=== PATIENT | female | born 1970 | race Caucasian/White ===

== ENCOUNTER → 2019-10-18 | Outpatient (CLI) | payer BC, OTHER ==
--- NOTE | 2019-10-19 09:41 | US ---
EXAM DESCRIPTION: 3D Diagnostic, Bilateral (accession [id number]), Breast,Right (accession [id number]): Ultrasound CLINICAL HISTORY: 49 yearsFemaleABNORMAL CLINICAL BREAST EXAM palpable subareolar mass right breast. No personal history of breast cancer. Remote family history of breast cancer. Menarche age 13. Childbirth age 18. Menopause age 47. No HRT Lifetime risk of developing breast cancer (Tyrer-Cuzick model)(%): 6.0. COMPARISON: 2-D digital screening bilateral mammography September 2011. TECHNIQUE: Bilateral LM, CC, and MLO projection full-field images, digital tomosynthesis technique. Bilateral 2-D digital full-field images: LM, CC, and MLO projections. Spot magnification retroareolar right breast. CAD available for 2-D images.. Transcutaneous scanning of the right breast utilizing lebron-scale and Doppler modes. Scanning performed by the colliery clerk ; observation by Dr. Cross. FINDINGS: The breast parenchymal density pattern is: Scattered areas of fibroglandular density. No skin thickening or nipple retraction fibroglandular tissues bilaterally are predominantly in the anterior third of both breasts. Small group of predominantly round microcalcifications abutting the lateral-inferior right nipple and in close association with the overlying skin marker. Not well visualized on the tomosynthesis images. Not seen on the prior studies from 2012. Focal asymmetry 2:00 to 3:00 anterior third approximately 5 to 6 cm from the nipple. Focal asymmetry middle third of the right breast approximately 8 to 9 cm from the nipple lower-outer quadrant, approximately 6:00. Solitary microcalcifications bilaterally and left axillary and intramammary lymph nodes. Ultrasound: Scanning of the retroareolar right breast shows no dominant solid mass, distinct cyst, large calcifications, and no other abnormal tissue. Scanning right breast 6:00, 8 cm from the nipple demonstrates a well-defined anechoic cyst with wider than tall orientation, echogenic watson, and posterior acoustic enhancement. Dimensions are 12 x 8 x 4 mm with no vascularity. Scanning right breast 2:00 to 4:00 5 cm from the nipple. Mixture of fatty and fibroglandular tissues. No dominant solid mass, no distinct cyst, no fluid collection and no large calcifications. No skin changes visible on the right breast. IMPRESSION: Probably benign retroareolar calcifications right breast. BI-RADS CATEGORY: 3 - PROBABLY BENIGN. RECOMMENDATIONS: FOLLOW-UP: Short interval (6-month) diagnostic digital tomosynthesis right breast with targeted right breast ultrasound.. The FINDINGS and the FOLLOW-UP plan were reviewed in person with the patient after the examination. Written communication explaining the IMPRESSION and FOLLOW-UP will be mailed to the patient and referring care provider. Electronically signed by: Peterson Cross MD 10/19/2019 9:40 AM CDT
== END ==
LOC: MAMMO 10:30
PROVIDERS: ATTEND Family Medicine
DX: R92.8 Other abnormal and inconclusive findings on diagnostic imaging of breast (principal)
CPT/HCPCS: 76641; 77066; G0279

== ENCOUNTER 2020-02-18 23:35 | Emergency (ER) | payer OTHER ==
[2020-02-18] MEDS ORDERED: ACETAMINOPHEN 500 MG TAB PO ONE (23:49)
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
[2020-02-18 23:56] VITALS: TEMP 97.1
[2020-02-19] MEDS ORDERED: SODIUM CHLORIDE 0.9% 1000ML 1,000 ML IVS ONE (00:02)
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
[2020-02-19 01:23] VITALS: O2SAT 97
--- NOTE | 2020-02-19 02:05 | CT ---
EXAM DESCRIPTION: CT of the head without contrast CLINICAL HISTORY: Trauma/pain COMPARISON: None available TECHNIQUE: Axial CT of the head obtained from the skull apex to the skull base without contrast. FINDINGS: No acute intracranial hemorrhage identified. No mass, mass effect, shift of the midline, abnormal extra-axial fluid collection or CT evidence of acute ischemic change identified. The ventricular system is unremarkable. No acute abnormalities of the supratentorial white matter, basal ganglia, cerebellum, or brainstem. The visualized paranasal sinuses and the mastoids are relatively well aerated. No skull fracture identified. Visualized orbits and globes are unremarkable. IMPRESSION: 1. No acute intracranial abnormality identified. This exam was performed according to our departmental dose-optimization program, which includes automated exposure control, adjustment of the mA and/or kV according to patient size and/or use of iterative reconstruction technique. Electronically signed by: Lino Diane 02/19/2020 2:03 AM CDT
--- NOTE | 2020-02-19 02:07 | CT ---
EXAM DESCRIPTION: CT of the cervical spine without contrast. CLINICAL HISTORY: trauma /pain COMPARISON: None available TECHNIQUE: Axial CT of the cervical spine obtained without contrast. FINDINGS: Straightening of the cervical lordosis may be secondary to patient positioning. The atlantoaxial, atlantodental, and occipitoatlantal intervals are preserved. No fracture identified. Vertebral body height preserved. Prevertebral soft tissues are unremarkable. Intervertebral disc height preserved. Degenerative spurring of the atlantodental articulation. Visualized skull base is intact. No fracture of the visualized facial bones. Visualized mastoid air cells and paranasal sinuses are well aerated. Visualized thyroid is unremarkable. No cervical lymphadenopathy. No pneumothorax in the visualized lung apices. IMPRESSION: 1. No acute fracture or subluxation of the cervical spine. This exam was performed according to our departmental dose-optimization program, which includes automated exposure control, adjustment of the mA and/or kV according to patient size and/or use of iterative reconstruction technique. Electronically signed by: Lino Diane 02/19/2020 2:06 AM CDT
--- NOTE | 2020-02-19 02:19 | CT ---
CT THORACIC SPINE WITHOUT CONTRAST. 02/19/2020 CLINICAL HISTORY: Pain after trauma. COMPARISON: None. TECHNIQUE: Axial 2.[address] imaging of the thoracic spine. Reformatted coronal and sagittal images obtained. A dose reduction technique was utilized. FINDINGS: Limited exam due to body habitus and mild motion artifact. Normal thoracic kyphosis. There is no thoracic vertebral body fracture. No subluxation. No fracture within the posterior elements. There is evidence of T10 bilateral laminectomy. There is minimal degenerative disc narrowing throughout the mid to lower thoracic spine with multilevel vacuum disc changes. There are hypertrophic mild endplate osteophytes throughout the thoracic spine. There is no spinal canal or foraminal stenosis. There is an intrathecal catheter entering the thecal space at the T9-10 level with the superior tip of the device at T8. There is mild increased attenuation of the lung parenchyma bilaterally due to very low volumes. Elevated right hemidiaphragm suggesting paralysis. Included. Central airways appear normal. IMPRESSION: 1. Mild thoracic spondylosis. No acute fracture or subluxation. Electronically signed by: Bella Talamantes DO 02/19/2020 2:18 AM CDT
--- NOTE | 2020-02-19 02:20 | CT ---
EXAM: AP lumbar spine without IV contrast CLINICAL DATA: 50-year-old female status post trauma. TECHNICAL DATA: Multiple high-resolution thin axial CT images were performed through the lumbar spine followed by sagittal and coronal reconstructed images. The CT study is performed according to ALARA (as low as reasonably achievable) or ALARA/IMAGE GENTLY, with automatic adjustment of mA and/or kV according to patient size. Performed on: 02/19/2020 at 1:37 AM COMPARISONS: Prior CT abdomen and pelvis performed on 03/14/2016 and plain radiographs of the lumbar spine performed on 04/01/2011. FINDINGS: There are five lumbar type vertebral bodies. The lumbar vertebrae are normal in height. There is normal alignment of the vertebrae. There is persistent marked disc space narrowing at L5-S1. Bone mineralization is normal. There is normal alignment of the facet joints on the parasagittal images. There are moderate degenerative changes of the facet joints and there appears to be fusion of the L4-L5 and L5-S1 facet joints. There are stable radiopaque foreign bodies posterior to the L3-L4 facet joints bilaterally. There is no evidence of acute fracture or subluxation. There is L3-L4 canal stenosis secondary to a disc osteophyte complex and facet joint arthropathy. There is no significant neural foraminal stenosis. The paravertebral and paraspinal soft tissues are unremarkable. IMPRESSION: 1. No evidence of acute osseous injury involving the lumbar spine. 2. Mild degenerative changes of the lumbar spine similar when compared to the prior study. 3. Chronic changes of the facet joints from L3-L4 through L5-S1. There are stable small radiopaque foreign bodies posterior to the L3-L4 facet joints bilaterally which may be postsurgical in nature. Electronically signed by: Ariana Trujillo DO 02/19/2020 2:19 AM CDT
--- NOTE | 2020-02-19 02:38 | CT ---
EXAM: CT abdomen and pelvis with IV contrast CLINICAL DATA: 50-year-old female with abdominal pain and vomiting TECHNICAL DATA: Axial CT imaging of the abdomen and pelvis was performed following the administration of intravenous contrast.. Oral contrast was not administered. Sagittal and coronal reconstructed images were then performed. The CT study is performed according to ALARA (as low as reasonably achievable) or ALARA/IMAGE GENTLY, with automatic adjustment of mA and/or kV according to patient size. Performed on: 02/19/2020 at 1:38 AM. Comparison: Prior CT abdomen and pelvis with contrast performed on 03/14/2016 FINDINGS: Lung bases: The lung bases are grossly clear. There is marked elevation of the right hemidiaphragm which has progressed since the prior study. Liver: The liver is mildly enlarged and measures 21 cm in craniocaudal dimension. There is some streak artifact in the upper abdomen likely related to the patient's arms being down by her side during scanning. This does result in slight degradation of image quality. No focal hepatic abnormalities are identified. Liver attenuation is within normal limits. Spleen:The spleen is normal is size, configuration and attenuation. Gallbladder and bile duct: The gallbladder is incompletely distended on this examination. There is no biliary ductal dilatation. Pancreas: The pancreas is grossly normal in size and configuration. Adrenal Glands:The adrenal glands are normal in size and configuration. Kidneys:The kidneys are normal in size and configuration. There is no evidence of hydronephrosis. There is no evidence of nephrolithiasis. No definite solid or cystic renal mass lesions are identified. Stomach:The stomach is grossly normal. There is no definite hiatal hernia. Bowel:The bowel gas pattern is non specific and non obstructive. Appendix: The appendix is normal. Free air:There is no evidence of free air. Free fluid: There is no evidence of free fluid. Vasculature: The aorta is normal in caliber and contour. The inferior vena cava is grossly unremarkable. Lymphadenopathy: No pathologic lymphadenopathy is identified. There are questionable right axillary lymph nodes (series 5, image 1). Bladder: The bladder is well distended and smooth in contour. Reproductive: The uterus is grossly within normal limits. Bones: No acute osseous abnormalities are identified. There are mild chronic degenerative changes of the thoracolumbar spine. A dorsal column stimulator is present extending from T8 through T10. Small metallic artifacts project posterior to the L3-L4 facet joints bilaterally which may be postsurgical in nature. There is fusion of the L4-L5 and L5-S1 facet joints. Soft tissues: There is a small fat-containing ventral umbilical hernia. This has slightly increased in size since the prior study. IMPRESSION: 1. No evidence of acute intra-abdominal or intrapelvic pathology. 2. Marked elevation of the right hemidiaphragm which has progressed since the prior study. 3. Hepatomegaly. 4. Small fat-containing ventral umbilical hernia which has slightly increased in size since the prior study. 5. Chronic changes of the thoracolumbar spine as described above. 6. Questionable right axillary lymph nodes (series 5, image 1). Electronically signed by: Ariana Trujillo DO 02/19/2020 2:36 AM CDT
[2020-02-19 03:09] VITALS: BP 148/92
--- NOTE | 2020-02-19 03:09 | RAD ---
EXAM DESCRIPTION: Hand,Left 3 Views CLINICAL HISTORY: Trauma/pain COMPARISON: None. FINDINGS: 3 views of the left hand. No radiopaque foreign body. No subcutaneous air. Normal osseous mineralization. No acute fracture identified. IMPRESSION: 1. No acute fracture identified. Electronically signed by: Lino Diane 02/19/2020 3:08 AM CDT
== END 2020-02-19 03:09 | disposition home or self-care (01) ==
LOC: ER 23:35
DX: R07.9 Chest pain, unspecified (principal); M54.2 Cervicalgia; T14.8XXA Other injury of unspecified body region, initial encounter; M54.5 Low back pain; F32.9 Major depressive disorder, single episode, unspecified; Z79.899 Other long term (current) drug therapy; Z88.8 Allergy status to other drugs, medicaments and biological substances; Z88.6 Allergy status to analgesic agent; V47.5XXA Car driver injured in collision with fixed or stationary object in traffic accident, initial encounter; Y92.410 Unspecified street and highway as the place of occurrence of the external cause
CPT/HCPCS: 70450; 71045; 72125; 72128; 72131; 72170; 73130; 74177; 80053; 83690; 84484; 85025; 85610; 85730; 93005; J7030

== ENCOUNTER → 2020-02-29 | Outpatient (CLI) | payer SELFPAY | LOC: YCFC.O 15:56 | PROVIDERS: ATTEND Family Medicine | DX: Z11.59 Encounter for screening for other viral diseases (principal) ==

== ENCOUNTER → 2020-06-19 | Outpatient (CLI) | payer SELFPAY | LOC: YCFC.O 08:08 | PROVIDERS: ATTEND Family Medicine | DX: I10 Essential (primary) hypertension (principal); Z13.220 Encounter for screening for lipoid disorders; Z13.29 Encounter for screening for other suspected endocrine disorder; Z13.0 Encounter for screening for diseases of the blood and blood-forming organs and certain disorders involving the immune mechanism ==

== ENCOUNTER → 2020-06-19 | Outpatient (CLI) | payer OTHER ==
--- NOTE | 2020-06-19 10:42 | MAM ---
EXAM DESCRIPTION: 3D Diagnostic, Right (accession [id number]), Breast,Right (accession [id number]): Ultrasound CLINICAL HISTORY: 50 yearsFemale6 MONTH FOLLOW UP patient history Lifetime risk of developing breast cancer (Tyrer-Cuzick model)(%): Not calculated COMPARISON: Other TECHNIQUE: Right breast LM, CC, and MLO projection full-field images, digital tomosynthesis technique. Right breast 2-D digital full-field images: LM, CC, and MLO projections. CAD available for 2-D images.. Transcutaneous scanning of the right breast utilizing lebron-scale and Doppler modes. Scanning performed by the starch mangle tender ; observation by Dr. Cross. FINDINGS: Right breast parenchymal density pattern is: Scattered areas of fibroglandular density. Noted is focal asymmetry noted at 3:00 6 cm from the nipple with no interval change. Small group of uniformly round microcalcifications abutting the lateral inferior right nipple. Stable focal asymmetry 8 cm from the nipple at 6:00. No skin thickening or nipple retraction No new focal, stellate mass or density, focal asymmetry , and no suspicious microcalcifications right breast Stable mammograms compared to prior study, taking into account differences in mammographic technique Ultrasound: Scanning at 6:00, 8 cm from the nipple. The cyst seen on the prior study is no longer visualized. No dominant mass, no fluid collection, no large calcifications. No overlying skin changes. IMPRESSION: Benign exam. BIRAD CATEGORY: 2 BENIGN FINDINGS. RECOMMENDATIONS: FOLLOW UP: Routine digital bilateral mammographic screening, 1 year from prior bilateral diagnostic study which will be in or after October 2020. Written communication explaining the IMPRESSION and follow-up, will be mailed to the patient and referring health care provider. The FINDINGS and the FOLLOW-UP plan were reviewed in person with the patient after the examination. According to the [employer], yearly mammograms are recommended starting at age 40 and continuing as long as a woman is in good health. Any breast change noted on a breast self-exam should be reported promptly to the patient's healthcare provider. Breast MRI is recommended for women with an approximately 20-25% or greater lifetime risk of breast cancer, including women with a strong family history of breast or ovarian cancer and women who have been treated for Hodgkin's disease. A negative mammographic report should not delay tissue diagnosis in patients with significant clinical history or physical findings. Extremely dense breast tissue limits the sensitivity of digital mammography. Electronically signed by: Peterson Cross MD 06/19/2020 10:40 AM [facility]
== END ==
LOC: MAMMO 08:02
PROVIDERS: ATTEND Family Medicine
DX: R92.8 Other abnormal and inconclusive findings on diagnostic imaging of breast (principal)
CPT/HCPCS: 76641; 77065; G0279